=== PATIENT | male | born 1990 | race Caucasian/White ===

== ENCOUNTER 2025-02-26 11:39 | Outpatient (CLI) | payer BC, SELFPAY | END 2025-02-26 11:40 | disposition home or self-care (01) | LOC: NFLDUCREF 11:40 | PROVIDERS: Visit Provider Physician Assistant | DX: L98.9 Disorder of the skin and subcutaneous tissue, unspecified (principal) | CPT/HCPCS: 87070; 87186 ==

== ENCOUNTER 2025-06-03 13:36 | Outpatient (CLI) | payer BC, SELFPAY | END 2025-06-03 13:37 | disposition home or self-care (01) | LOC: NFLDUCREF 13:37 | PROVIDERS: Visit Provider Physician Assistant | DX: L03.90 Cellulitis, unspecified (principal) | CPT/HCPCS: 87070; 87186 ==